=== PATIENT | male | born 2000 | race Caucasian/White ===

== ENCOUNTER 2025-08-20 19:05 | Emergency (ER) | payer OTHER ==
[2025-08-20] MEDS ORDERED: Acetaminophen 500 MG TAB ONE (19:44)
== END 2025-08-20 21:54 ==
LOC: CSHERS 19:05
DX: S06.0X0A Concussion without loss of consciousness, initial encounter (principal); S13.4XXA Sprain of ligaments of cervical spine, initial encounter; V89.2XXA Person injured in unspecified motor-vehicle accident, traffic, initial encounter
CPT/HCPCS: 70450